=== PATIENT | male | born 1970 | race Caucasian/White ===

== ENCOUNTER → 2019-11-02 | Outpatient (CLI) | payer BC ==
--- NOTE | 2019-11-02 08:43 | RADIOLOGY REPORT (SQ) ---
EXAM DESCRIPTION: U/S ABDOMEN LIMITED W/O DOP COMPLETED DATE/TIME: 11/02/2019 8:32 am REASON FOR STUDY: ABDOMINAL PAIN, RUQ R10.11 RIGHT UPPER QUADRANT PAIN COMPARISON: None. TECHNIQUE: Dynamic and static grayscale images acquired of the abdomen and recorded on PACS. Additio nal selected color Doppler and spectral images recorded. LIMITATIONS: None. FINDINGS: PANCREAS: Pancreas is largely obscured by overlying bowel gas. LIVER: The liver is echogenic consistent with fatty infiltration. The liver measures approximately 1 8 cm in cranial caudal dimensions. LIVER VASCULATURE: Normal directional flow of the main portal vein and hepatic veins. GALLBLADDER: No stones. Normal wall thickness. No pericholecystic fluid. ULTRASOUND-DETECTED HONG'S SIGN: Negative. INTRAHEPATIC DUCTS AND COMMON DUCT: CBD and intrahepatic ducts normal caliber. No filling defects. INFERIOR VENA CAVA: Poorly visualized due to overlying bowel gas. AORTA: No aneurysm. RIGHT KIDNEY: Normal size. Normal echogenicity. No solid or suspicious masses. No hydronephrosis. No calcifications. PERITONEAL AND RIGHT PLEURAL SPACE: No ascites or effusions. OTHER: No other significant findings. IMPRESSION: Limited study due to overlying bowel gas as described. There is fatty infiltration of t he liver. No gallstones or evidence of acute cholecystitis. TECHNICAL DOCUMENTATION: JOB ID: [id number] [employer]- All Rights Reserved Reading location - IP/workstation name: [email or web address]
== END ==
LOC: RAD 07:52
PROVIDERS: ATTEND Physician Assistant
DX: R10.9 Unspecified abdominal pain (principal); R10.11 Right upper quadrant pain
CPT/HCPCS: 76705